=== PATIENT | male | born 1970 | race Two or more races ===

== ENCOUNTER 2018-06-12 10:45 | Emergency (ER) | payer OTHER ==
[2018-06-12 10:57] VITALS: BP 113/74
[2018-06-12] MEDS ORDERED: ACETAMINOPHEN 500 MG TAB ONE (10:58)
[2018-06-12] MEDS ORDERED: ACETAMINOPHEN 500 MG TAB PO ONE (10:58)
--- NOTE | 2018-06-12 11:30 | EDPHY ---
H & P Time Seen by Provider: 06/12/18 10:52 HPI/ROS: CHIEF COMPLAINT: Abdominal pain HISTORY OF PRESENT ILLNESS: Patient is a 47-year-old male who presents emergency department with lower abdominal pain. The patient states he was lifting heavy doors yesterday. He was placed in the dorsal from the truck to a 4 cuffless and bending over. After moving needs doors he felt bilateral lower abdominal discomfort. This was worse with movement. The pain is persisted today. He has no pain at rest. He has had no nausea or vomiting. No diarrhea. Patient feels as though the pain is muscle related. He has had no dysuria frequency. No fevers or chills. REVIEW OF SYSTEMS: 10 systems were reveiwed and are negative with the exception of the elements mentioned in the history of present illness. Past Medical/Surgical History: Denies Smoking Status: Never smoked Physical Exam: Vitals noted GENERAL: Well-appearing, in no acute distress, alert. HEENT: Eyes normal to inspection, normal pharynx, no signs of dehydration. NECK: Normal, supple. RESPIRATORY: Clear to auscultation bilaterally, no rales, rhonchi or wheezing. CVS: Regular rate and rhythm, no rubs, murmurs, or gallops. ABDOMEN: Soft, nondistended, no organomegaly. Patient has minimal left lower quadrant tenderness to palpation. This seems to be muscle related. There is no tenderness palpation on deep palpation. Patient's pain occurs primarily when he is performing a sit up. I palpate no bulge. There is no palpable hernia. There is no erythema or warmth. BACK: Normal to inspection, no CVA tenderness. SKIN: Normal color, no rash, warm, dry. No pallor. EXTREMITIES: No pedal edema, normal, no joint swelling. NEURO/PSYCH: Alert and oriented, normal mood and affect, normal motor sensory exam. Constitutional: Initial Vital Signs Temperature (C) 37.0 C 06/12/18 10:54 Heart Rate 107 H 06/12/18 10:54 Respiratory Rate 18 06/12/18 10:54 Blood Pressure 113/74 06/12/18 10:54 O2 Sat (%) 96 06/12/18 10:54 O2 Delivery Mode Room Air Allergies/Adverse Reactions: No Known Allergies Allergy (Verified 06/12/18 10:53) Home Medications: Medication Instructions Recorded NK [No Known Home Meds] 06/17/15 Medical Decision Making ED Course/Re-evaluation: In the emergency department I discussed possible etiologies with the patient. I answered all his questions. At this time, based on his exam in presentation are not feel he needs imaging. I discussed this with the patient. The plan is the patient will rest his abdominal wall muscles. He will have his abdomen rechecked in 3-4 days. He was told to return sooner if he increases abdominal pain, has abdominal pain at rest, developed vomiting, or has any other concerns. Differential Diagnosis: My differential includes but is not limited to abdominal wall strain, hernia, diverticulitis, abscess, small-bowel obstruction, perforation, urinary tract infection - Data Points Medications Given: Discontinued Medications Acetaminophen (Tylenol) 1,000 mg PO EDNOW ONE Stop: 06/12/18 10:59 Last Admin: 06/12/18 10:59 Dose: 1,000 mg Departure - Departure Disposition: Home, Routine, Self-Care Clinical Impression: Abdominal wall pain Abdominal pain Qualifiers: Abdominal location: left lower quadrant Qualified Code(s): R10.32 - Left lower quadrant pain Condition: Good Instructions: Abdominal Pain (ED) Additional Instructions: Return with increasing abdominal pain, nausea, vomiting, pain at rest, fever, chills or any other concerns. Rest her abdominal wall muscles for the next few days. Referrals: Work Comp Referral [facility] [Outside] - 3-4 days, if not improved
== END 2018-06-12 11:42 | disposition home or self-care (01) ==
LOC: CED 10:45
DX: R10.31 Right lower quadrant pain (principal); R10.32 Left lower quadrant pain